=== PATIENT | female | born 1940 | race Caucasian/White ===

== ENCOUNTER 2022-07-02 21:40 | Emergency (ER) | payer MEDICARE, OTHER, SELFPAY ==
--- NOTE | ~2022-07-02 | XR_ITS ---
EXAMINATION: XR SHOULDER, RIGHT CLINICAL INFORMATION: COMPARISON: None TECHNIQUE: Two views of the right shoulder. FINDINGS: The bones and soft tissues are normal. No fracture. Glenohumeral and acromioclavicular alignment is anatomic with normal joint space. No abnormal soft tissue calcifications. XR/XR shoulder RT min 2V IMPRESSION: Normal right shoulder.
--- NOTE | ~2022-07-02 | XR_ITS ---
EXAMINATION: XR HAND, RIGHT CLINICAL INFORMATION: Fall COMPARISON: None TECHNIQUE: PA, lateral, and oblique views of the right hand. FINDINGS: The bones and soft tissues are normal. No fracture. Alignment is anatomic. Joint spaces are maintained. No erosions or soft tissue calcifications. XR/XR hand RT 2V IMPRESSION: Normal right hand.
[2022-07-02 22:51] VITALS: BP 172/84; PULSE 79; RESP 18; TEMP 36.7; O2SAT 95; BMI 30.5
--- OUTSIDE RECORDS SUMMARY | 2022-07-03 02:36 | XMS_ITS | Continuity of Care Document ---
:1940 Author Organization [facility] Address [address] [place] [id number]- Care Team Providers Name Role Phone Carol Kevin NP Primary Care Physician Encounter [facility] [place] Date(s): 06/17/19 - 06/17/[address] [address]- [facility] Encounter Diagnosis Headache (Final) - 06/17/19 headache (Final) - 06/17/19 Discharge Disposition: A-D/C Home Attending Physician: Antionette James MD Admitting Physician: Antionette James MD Referring Physician: Not on Staff, Referring MD Allergies, Adverse Reactions, Alerts Substance Reaction Severity Status sulfa drugs rash Active Macrobid vomiting Active Results Radiology Reports Exam Date Time Procedure Performing Provider Status 06/17/19 11:40 AM Chest 2 Views Frontal and Lat Nelson Fagan (Verified) Notes:(Chest 2 Views Frontal and Lat) Reason For Exam: HTN;Other:RESULT: Chest 2 Views Frontal and Lat Chest 2 Views Frontal and Lat Reason: Other:; HTN; Clinical Question(s): CHF; Hx of Present Illness: pt reports R frontal BETANCOURT x1wk,started checking BP at home 2-3 days ago and noted it to be high, hx of HTN. reports assoc. dizziness this AM when coming off the ambulance. otherwise denies any assoc. dizziness, visual changes, CP SOB. COMPARISON: None. FINDINGS: LINES AND TUBES: None. LUNGS AND PLEURA: Clear lungs. Normal pulmonary vascularity. No pleural effusion. No pneumothorax. HEART, MEDIASTINUM AND YOLANDA: Heart is normal in size. Normal mediastinal and hilar contour. BONES AND SOFT TISSUES: No acute abnormality. IMPRESSION: No acute abnormality. WSN: [id number] Dictated By: Phuong Wood MD Dictated Date/Time: 06/17/19 11:57 a Reviewed By: Phuong Wood MD Signed By: Phuong Wood MD Signed Date/Time: 06/17/19 11:57 am Transcribed By: JAYCE Transcribed Date/Time: 06/17/19 11:54 am Vital Signs Most recent to oldest 1 2 3 [Reference Range]: Oxygen Saturation [94-100 %] 97 % 98 % 96 % (06/17/19 5:25 PM) (06/17/19 2:47 PM) (06/17/19 11: 00 AM) Pulse Rate [55-90 bpm] 76 bpm 81 bpm 86 bpm (06/17/19 5:25 PM) (06/17/19 2:47 PM) (06/17/19 11: 00 AM) Blood Pressure [90-138/55-84 151/72 mm Hg 161/85 mm Hg 176 /105 mm Hg mm Hg] *H* *H* *H* (06/17/19 5:25 PM) (06/17/19 3:57 PM) (06/17/19 2:4 7 PM) Respiratory Rate [16-30 18 br/min 16 br/min 16 br/mi n br/min] (06/17/19 5:31 PM) (06/17/19 5:25 PM) (06/17/19 2:4 7 PM) Temperature [96.8-100.4 DegF] 98.2 DegF 98.5 DegF (06/17/19 1:57 PM) (06/17/19 11:00 AM) Mode of Delivery (Oxygen) Room air Room air room a ir (06/17/19 5:25 PM) (06/17/19 2:47 PM) (06/17/19 11: 00 AM) Blood pressure sites Arm, left Arm, left Arm, left (06/17/19 5:25 PM) (06/17/19 2:47 PM) (06/17/19 1:5 7 PM) Temperature Route Oral Oral (06/17/19 1:57 PM) (06/17/19 11:00 AM)
--- NOTE | 2022-07-03 04:33 | ED.GENADULT ---
HPI - General Adult General Chief complaint: Fall Stated complaint: Fell in parking lot, laceration on r index finger Time Seen by Provider: 07/03/22 03:06 Source: patient Mode of arrival: ambulatory Limitations: no limitations History of Present Illness HPI narrative: 82-year-old female presents after an accidental fall. She was in a parking lot when she had a mechanical fall. She did not hit her head or lose consciousness. She suffered injuries to the right upper extremity. She has arpt-[id number] pain in the right shoulder and right 2nd digit. The pain is worse with movement and palpation. The pain does not radiate. Not associated with numbness or tingling. The pain is sharp and aching in nature. Patient denies any prodrome such as lightheadedness, chest pain, palpitations prior to her fall. Fall was witnessed. There is no seizure-like activity. Related Data Allergies Allergy/AdvReac Type Severity Reaction Status Date / Time nitrofurantoin Allergy Nausea Verified 07/02/22 22:57 [From Macrobid] Sulfa (Sulfonamide Allergy Rash Verified 07/02/22 22:57 Antibiotics) sulfamethoxazole Allergy Rash Verified 07/02/22 22:57 [From Bactrim] trimethoprim [From Bactrim] Allergy Rash Verified 07/02/22 22:57 Review of Systems Review of Systems: CONSTITUTIONAL: Denies weight loss, fever and chills. HEENT: Denies changes in vision and hearing. RESPIRATORY: Denies SOB and cough. CV: Denies palpitations no CP. GI: Denies abdominal pain, nausea, vomiting and diarrhea. : Denies dysuria and urinary frequency. MSK: + myalgia and joint pain. SKIN: Denies rash and pruritus. NEUROLOGICAL: Denies headache and syncope. PSYCHIATRIC: Denies recent changes in mood. Denies anxiety and depression. All other ROS are negative unless in HPI [facility] Social History Social History Advance Directives: No Advance Directives Information Provided: Yes Physical Exam ED Vital Signs: Vital Signs - 24 hr 07/02/22 22:51 Temperature 98.0 F Pulse Rate 79 Respiratory Rate 18 Blood Pressure 172/84 H Pulse Oximetry 95 Oxygen Delivery Method Room Air BMI result Body Mass Index 30.5 GEN: Well developed, no acute distress, alert, oriented HEENT: Normocephalic, atraumatic, normal external ears, nose appears normal Eyes: Normal to appearance Neck: Supple, no lymphadenopathy Respiratory: Talks in complete sentences, no respiratory distress Extremities: No clubbing cyanosis or edema, full range of motion of bilateral upper extremities swelling to left 2nd digit Neurologic: No focal neurologic deficits, cranial nerves 2-12 intact, gait normal Skin: No rash, skin tear/laceration to the volar PIP. Able to flex and extend against resistance, no deformity, soft tissue swelling Course Course Course Narrative: 82-year-old female presents after an accidental fall. She did not hit her head or lose consciousness. She sustained injuries to the right upper extremity. Her tetanus vaccination is not up today. That will be provided to her today. She did receive x-rays which identified no traumatic injury. The laceration is quite superficial and is more like a skin tear. It is not amenable to repair. We will clean it and I have recommended a course of wound care which included cleaning gently with soap and water, antibiotic ointment and a clean sterile bandage. She was instructed to watch for signs of infection including redness, swelling, pain, purulent drainage. Should this occur, she should either come back to the emergency department or follow-up with her primary care doctor for possible antibiotic administration. X-rays of the right hand and right shoulder did not reveal any evidence of traumatic injury. She may take Tylenol and ibuprofen as needed for pain and discomfort. We also discussed ice and elevation. Patient normally takes her diabetic blood pressure medication at night. She did not take any. We will provide her with 500 mg of rapid release metformin as opposed to her usual extended release. Will also provide her a small amount of her blood pressure medication for which he has been given a strategy on how to remove resume her medications. Medical Decision Making Medical Decision Making MDM Narrative: 82-year-old female presents after an accidental fall. She did not hit her head or lose consciousness. She sustained injuries to the right upper extremity. Her tetanus vaccination is not up today. That will be provided to her today. She did receive x-rays which identified no traumatic injury. The laceration is quite superficial and is more like a skin tear. It is not amenable to repair. We will clean it and I have recommended a course of wound care which included cleaning gently with soap and water, antibiotic ointment and a clean sterile bandage. She was instructed to watch for signs of infection including redness, swelling, pain, purulent drainage. Should this occur, she should either come back to the emergency department or follow-up with her primary care doctor for possible antibiotic administration. X-rays of the right hand and right shoulder did not reveal any evidence of traumatic injury. She may take Tylenol and ibuprofen as needed for pain and discomfort. We also discussed ice and elevation. Patient normally takes her diabetic blood pressure medication at night. She did not take any. We will provide her with 500 mg of rapid release metformin as opposed to her usual extended release. Will also provide her a small amount of her blood pressure medication for which he has been given a strategy on how to remove resume her medications. Differential Diagnosis Differential Diagnoses: The differential diagnosis associated with the presentation includes (Fracture contusion, dislocation, abrasion, laceration) Accidental fall, finger laceration, musculoskeletal pain Independent Interpretation I performed an independent interpretation of an: Plain X-Ray (He right hand: No acute fracture, right shoulder: No acute fracture or dislocation) Radiology Impression Discussion of test interpretation with radiology: I have reviewed the radiologist's reading. (IMPRESSION: Normal right hand. Dictated By:Nelson Pauligned By:<Electronically signed by Nelson Paul MD in OV>07/03/22 010) Radiologist Impression: IMPRESSION: Normal right hand. Dictated By: Nelson Paul MD Signed By: <Electronically signed by Nelson Paul MD in OV> 07/03/22 010 Discharge Plan Discharge Clinical Impression: Laceration of finger of right hand, Accidental fall, Acute pain of right shoulder Patient Disposition: Home, Self-Care Instructions: Fall Prevention (ED), Shoulder Pain (ED), Laceration Without Closure (ED) Additional Instructions: Regarding your finger laceration, watch for signs of infection which include redness, swelling, pain, purulence drainage. While in the emergency department, you took metformin 500 mg. You may continue usual dose tonight. We also gave you amlodipine 5 mg orally. You should take an additional 5 mg tonight as well. He took lisinopril 10 mg here you may continue usual dose at night. Referrals: Carol Kevin NP [Primary Care Provider] -
[2022-07-03] MEDS: amLODIPine Besylate 5 MG TABLET PO (04:47)
[2022-07-03] MEDS: metFORMIN HCl 500 MG TABLET PO (04:47)
[2022-07-03] MEDS: Diphth,Pertus(ACell),Tet Adult 0.5 ML SYRINGE IM (04:51)
== END 2022-07-03 04:59 | disposition home or self-care (01) ==
PROVIDERS: Emergency Provider Emergency Medicine; PCP Nurse Practitioner Adult Health
DX: G89.11 Acute pain due to trauma (principal); M25.511 Pain in right shoulder; S61.210A Laceration without foreign body of right index finger without damage to nail, initial encounter; W01.0XXA Fall on same level from slipping, tripping and stumbling without subsequent striking against object, initial encounter; Y93.01 Activity, walking, marching and hiking; Y92.481 Parking lot as the place of occurrence of the external cause; Y99.9 Unspecified external cause status
CPT/HCPCS: 73030; 73120; 90471; 90715; 99282; 99284

== ENCOUNTER 2025-04-15 08:58 | Outpatient (REF) | payer MEDICARE, OTHER, SELFPAY ==
[2025-04-15 09:18] LABS: MANUAL DIFF FLAG NO
--- OUTSIDE RECORDS SUMMARY | 2025-04-15 09:43 | XMS_ITS | Encounter Summary ---
Author Organization [facility] Address [address] [place] [address] Phone Care Team Providers Care Log Roper Name Role Phone Carol Kevin NP Primary Care Provider [phone] Encounter Details Date Type Department Care Team (Late st Contact Info) Description 01/03/2025 Transcribe Orders Virtual Department [address] [place] [address] Carol Kevin NP [address] [place] [address] Asymptomatic menopausal state (Primary Dx) Social History Tobacco Use Types Packs/Day Years Used Date Smoking Tobacco: Former Cigarettes Q uit: 04/12/1977 Smokeless Tobacco: Never Alcohol Use Standard Drinks/Week Comments Never 0 (1 standard drink = 0.6 oz pur e alcohol) Education Answer Date Recorded Are you interested in more education? Not on lori e 09/17/2022 Are you concerned about learning? Not on file 09/17/2022 No 09/17/2022 No 09/17/2022 Digital Access Answer Date Recorded No 10/16/2022 No 10/16/2022 Reliable internet access at home? Not on file 10/16/2022 Device with a working camera? Not on file Intimate Partner Violence Answer Date R ecorded Are you denied basic needs s uch as food, clothing, or medical care? No 03/13/2023 In the past 12 months have y ou been in a relationship with a person who hurts, threatens, or tries to control you? No 03/13/2023 Are you denied basic needs s uch as food, clothing, or medical care? No 03/13/2023 In the past 12 months have y ou been in a relationship with a person who hurts, threatens, or tries to control you? No 03/13/2023 Comments Unknown Sex and Gender Information Value Date Recorded Sex Assigned at Female 05/04/2019 7:18 PM EST Legal Sex Female 10:11 PM EDT Gender Identity Female 05/04/2019 7:18 PM EST Sexual Orientation Straight 05/04/2019 7: 18 PM EST documented as of this encounter Plan of Treatment Upcoming Encounters Date Type Department Care Team (Late st Contact Info) Description 06/03/2025 7:15 AM EST Appointment [facility] - [address] [address] Carol Kevin NP [address] [place] [id number] Scheduled Orders Name Type Priority Associated Diagnoses Orde r Schedule DXA Screening Imaging Routine Asymptomatic menopausal state Expected: 02/02/2025, Expires: 01/03/2026 documented as of this encounter Visit Diagnoses Diagnosis Asymptomatic menopausal state- Primary documented in this encounter Care Teams Log Roper Relationship Specialty Start Date End Date Carol Kevin NP [address] [place] [id number] PCP - General 03/10/17 documented as of this encounter Additional Source Comments The information contained in this document represents components of the legal health record. It is not the complete legal health record.[facility]
--- OUTSIDE RECORDS SUMMARY | 2025-04-15 09:43 | XMS_ITS | Encounter Summary ---
Author Organization [facility] Address [address] [place] [address] Phone Care Team Providers Care Automotive Manufacturer Name Role Phone Carol Kevin NP Primary Care Provider [phone]- [phone] Encounter Details Date Type Department Care Team (Latest Contact Info) Description 03/30/2017 Transcribe Orders [address] [place] [address] Dorcas Shell DO [address] [place] [address] [email or web address] Iron deficiency anemia, unspecified iron deficiency anemia type Social History Tobacco Use Types Packs/Day Years Used Date Smoking Tobacco: Never Assessed Comments Unknown Sex and Gender Information Value Date Recorded Sex Assigned at Female 05/04/2019 7:18 PM EST Legal Sex Female 10:11 PM EDT Gender Identity Female 05/04/2019 7:18 PM EST Sexual Orientation Straight 05/04/2019 7: 18 PM EST documented as of this encounter Plan of Treatment Upcoming Encounters Date Type Department Care Team (Late st Contact Info) Description 06/03/2025 7:15 AM EST Appointment [facility], Bone Density - [facility] [address] [place] [address] Carol Kevin NP [address] [place] [address] documented as of this encounter Procedures Procedure Name Priority Date/Time Associated Diagnosis Comments MONOCLONAL PROTEIN STUDY, SERUM Routine 03/30/2017 11:38 AM EST Iron deficiency anemia, unspecified iron deficiency anemia type GLIADIN DEAMIDATED ANTIBODY, IGG/IGA Routine 03/30/2017 11:38 AM EST Iron deficiency anemia, unspecified iron deficiency anemia type DIRECT EDER Routine 03/30/2017 11:38 AM EST Iron deficiency anemia, unspecified iron deficiency anemia type RETICULOCYTES Routine 03/30/2017 11:38 AM EST Iron deficiency anemia, unspecified iron deficiency anemia type LDH Routine 03/30/2017 11:38 AM EST Iron deficiency anemia, unspecified iron deficiency anemia type COMPREHENSIVE METABOLIC PANEL (CMP) Routine 03/30/2017 11:38 AM EST Iron deficiency anemia, unspecified iron deficiency anemia type TSH WITH REFLEX Routine 03/30/2017 11:38 AM EST Iron deficiency anemia, unspecified iron deficiency anemia type IRON AND IRON BINDING CAPACITY Routine 03/30/2017 11:38 AM EST Iron deficiency anemia, unspecified iron deficiency anemia type ENDOMYSIAL IGA ANTIBODY Routine 03/30/20 17 11:38 AM EST Iron deficiency anemia, unspecified iron deficiency anemia type FREE LIGHT CHAINS, SERUM Routine 017 11:38 AM EST Iron deficiency anemia, unspecified iron deficiency anemia type TISSUE TRANSGLUTAMINASE IGA Routine 03/30/2017 11:38 AM EST Iron deficiency anemia, unspecified iron deficiency anemia type CBC AND DIFFERENTIAL Routine 03/30/2017 11:38 AM EST Iron deficiency anemia, unspecified iron deficiency anemia type FREE T4 Routine 03/30/2017 11:38 AM EST HAPTOGLOBIN Routine 03/30/2017 11:38 AM EST Iron deficiency anemia, unspecified iron deficiency anemia type FOLATE Routine 03/30/2017 11:38 AM EST Iron deficiency anemia, unspecified iron deficiency anemia type FERRITIN Routine 03/30/2017 11:38 AM EST Iron deficiency anemia, unspecified iron deficiency anemia type VITAMIN B12 Routine 03/30/2017 11:38 AM EST Iron deficiency anemia, unspecified iron deficiency anemia type BETA-2 MICROGLOBULIN, BLOOD Routine 03/30/2017 11:38 AM EST Iron deficiency anemia, unspecified iron deficiency anemia type documented in this encounter Results * Free T4 (03/30/2017 11:38 AM EST) FREE T4 1.2 0.9 - 1.7 ng/dL [facility] 03/30/2017 11:3 8 AM EST 03/30/2017 12:19 PM EST Dorcas Shell LAB BLOOD BKR ORDERABLES F inal Result [facility] [address] [place] [address] * Endomysial IgA antibody (03/30/2017 11:38 AM EST) ENDOMYSIAL AB IGA Negative Negative [facility] DPT OF LAB MED AND PAT+ Comment: (NOTE) A negative serum IgA endomysial antibody is usually seen in normal individuals, however a diagnosis of celiac disease, dermatitis herpetiformis and other gluten sensitive disorders cannot be completely excluded, as this test may be negative in a subset of individuals with these disorders. If the clinical suspicion for one of these disorders is high, recommend further testing for gluten sensitivity as indicated by the Celiac Disease Comprehensive [place] (Julien Test Unit Code CDCOM). In addition serum IgA endomysial antibody may also be negative in gluten-sensitive patients (with celiac disease, dermatitis herpetiformis or other gluten-sensitive disorders), who adhere to a strict gluten-free diet. ADDITIONAL INFORMATION This test has been modified from the supervisor dumping's instructions. Its performance characteristics were determined by [facility] in a manner consistent with CLIA requirements. This test has not been cleared or approved by the U.S. Food and Drug Administration. Blood 03/30/2017 11:3 8 AM EST 03/30/2017 12:18 PM EST Dorcas Avilawell LAB BLOOD ORDERABLES Final Result Performing Organization Address [facility] Co de Phone Number [facility] DPT OF LAB MED AND PAT+ [address] [place] [address] * Gliadin deamidated antibody, IgG/IgA (03/30/2017 11:38 AM EST) Gliadin Ab, IGA <10.0 <20.0 (Negative) U [facility] DPT OF LAB MED AND PAT+ GLIADIN AB IGG <10.0 <20.0 (Negative) U [facility] DPT OF LAB MED AND PAT+ Blood 03/30/2017 11:3 8 AM EST 03/30/2017 12:18 PM EST Dorcas Avilawell LAB BLOOD ORDERABLES Final Result Performing Organization Address [facility] Co de Phone Number [facility] DPT OF LAB MED AND PAT+ [address] [place] [address] * Tissue transglutaminase IgA (03/30/2017 11:38 AM EST) TTG IGA ANTIBODY <1.2 <4.0 (Negative) U/mL [facility] DPT OF LAB MED AND PAT+ Blood 03/30/2017 11:3 8 AM EST 03/30/2017 12:18 PM EST Dorcas [employer] LAB BLOOD BKR ORDERABLES F inal Result Performing Organization Address City/[facility] Co de Phone Number [facility] DPT OF LAB MED AND PAT+ [address] [place] [address] * Haptoglobin (03/30/2017 11:38 AM EST) HAPTOGLOBIN 130 30 - 200 mg/dL [facility] DPT OF LAB MED AND PAT+ Blood 03/30/2017 11:3 8 AM EST 03/30/2017 12:18 PM EST us [employer] LAB BLOOD BKR ORDERABLES F inal Result [facility] DPT OF LAB MED AND PAT+ [address] [place] [address] * Reticulocytes (03/30/2017 11:38 AM EST) RETIC (%) 1.4 0.6 - 1.9 % [facility] RETIC (ABSOLUTE) 0.0615 0.0164 - 0.0776 M/uL [facility] Retics, immature(%) 9.0 3.0 - 15.9 [facility] Blood 03/30/2017 11:3 8 AM EST 03/30/2017 12:19 PM EST [facility] BLOOD BKR ORDERABLES E dited Result - Final Performing Organization Address [facility] Co de Phone Number [address] [address] * (ABNORMAL) TSH with reflex (03/30/2017 11:38 AM EST) TSH 4.24(H) 0.27 - 4.20 uIU/mL [facility] Blood 03/30/2017 11:3 8 AM EST 03/30/2017 12:19 PM EST [employer] LAB BLOOD BKR ORDERABLES E dited Result - Final Performing Organization Address [facility] Co de Phone Number [address] [address] * LDH (03/30/2017 11:38 AM EST) LDH 161 118 - 273 U/L [facility] Blood 03/30/2017 11:3 8 AM EST 03/30/2017 12:19 PM EST [facility]LO[facility] BKR ORDERABLES F inal Result Performing Organization Address [facility]/ZIP Co de Phone Number [facility] [address] [place] [address] * (ABNORMAL) Free light chains, serum (03/30/2017 11:38 AM EST) [place] FLC (mg/dL) 25.40(H) 3.30 - 19.40 mg/L [facility] DPT OF LAB MED AND PAT+ Comment: (NOTE) ADDITIONAL INFORMATION Please note: The units for this test are in mg/L. To convert from mg/L to mg/dL divide by 10. Lambda Free Light Chains (mg/dL) 17.90 5.70 - 26.30 mg/L [facility] DPT OF LAB MED AND PAT+ Comment: (NOTE) ADDITIONAL INFORMATION Please note: The units for this test are in mg/L. To convert from mg/L to mg/dL divide by 10. Free [place]/Lambda Ratio 1.42 0.26 - 1.65 [facility] DPT OF LAB MED AND PAT+ Blood 03/30/2017 11:3 8 AM EST 03/30/2017 12:18 PM EST Dorcas Avilawell LAB BLOOD BKR ORDERABLES F inal Result [facility] DPT OF LAB MED AND PAT+ [address] [place] [address] * (ABNORMAL) Monoclonal protein study, serum (03/30/2017 11:38 AM EST) TOTAL PROTEIN 7.4 6.3 - 7.9 g/dL [facility] DPT OF LAB MED AND PAT+ ALBUMIN 3.9 3.4 - 4.7 g/dL [facility] DPT OF LAB MED AND PAT+ ALPHA-1 GLOBULIN 0.2 0.1 - 0.3 g/dL [facility] DPT OF LAB MED AND PAT+ ALPHA-2 GLOBULIN 1.3(H) 0.6 - 1.0 g/dL [facility] DPT OF LAB MED AND PAT+ BETA-GLOBULIN 1.1 0.7 - 1.2 g/dL [facility] DPT OF LAB MED AND PAT+ GAMMA-GLOBULIN 0.9 0.6 - 1.6 g/dL [facility] DPT OF LAB MED AND PAT+ A/G RATIO 1.08 [facility] D[facility] MED AND PAT+ M SPIKE Test component not applicable or not reported. not reported [facility] DPT OF LAB MED AND PAT+ M SPIKE Test component not applicable or not reported. not reported [facility] DPT OF LAB MED AND PAT+ IMPRESSION SEE NOTE [facility] DPT OF LAB MED AND PAT+ Comment: (NOTE) No apparent monoclonal protein on serum electrophoresis. See Immunofixation. IMMUNOFIXATION No monoclonal protein detected. [facility] DPT OF LAB MED AND PAT+ Blood 03/30/2017 11:3 8 AM EST 03/30/2017 12:18 PM EST us [employer] DO LAB BLOOD BKR ORDERABLES F inal Result [facility] DPT OF LAB MED AND PAT+ [address] [place] [address] * (ABNORMAL) Folate (03/30/2017 11:38 AM EST) [facility] FOLIC ACID >20.0(H) 4.2 - 19.9 ng/mL [facility] Blood 03/30/2017 11:3 8 AM EST 03/30/2017 12:19 PM EST Newser DO LAB BLOOD BKR ORDERABLES F inal Result [address] [address] * (ABNORMAL) Beta-2 microglobulin, blood (03/30/2017 11:38 AM EST) BETA 2 MICROGLOBULIN 3.40(H) 1.21 - 2.70 mcg/mL [facility] DPT OF LAB MED AND PAT+ Blood 03/30/2017 11:3 8 AM EST 03/30/2017 12:19 PM EST [employer] DO LAB BLOOD BKR ORDERABLES F inal Result [facility] DPT OF LAB MED AND PAT+ [address] [place] [address] * (ABNORMAL) Vitamin B12 (03/30/2017 11:38 AM EST) VITAMIN B12 1,135(H) 243 - 894 pg/mL [facility] Blood 03/30/2017 11:3 8 AM EST 03/30/2017 12:19 PM EST [employer] LAB BLOOD BKR ORDERABLES F inal Result [address] [address] * Ferritin (03/30/2017 11:38 AM EST) FERRITIN 20 13 - 150 ug/L [facility] Blood 03/30/2017 11:3 8 AM EST 03/30/2017 12:19 PM EST [employer] LAB BLOOD BKR ORDERABLES F inal Result [address] [address] * Iron and iron binding capacity (03/30/2017 11:38 AM EST) IRON 105 30 - 160 ug/dL [facility] IRON BINDING CAPACITY 354 228 - 428 ug/dL [facility] TRANSFERRIN SATURAT. 30 15 - 50 % [facility] Blood 03/30/2017 11:3 8 AM EST 03/30/2017 12:19 PM EST [employer] LAB BLOOD BKR ORDERABLES F inal Result Performing Organization Address City/State/[facility] Co de Phone Number [address] [address] * (ABNORMAL) Comprehensive metabolic panel (03/30/2017 11:38 AM EST) SODIUM 141 133 - 146 mmol/L [facility] POTASSIUM 4.5 3.3 - 5.1 mmol/L [facility] CHLORIDE 97 96 - 108 mmol/L [facility] CO2 30 21 - 35 mmol/L [facility] BUN 21(H) 6 - 19 mg/dL [facility] CREATININE 0.60 0.5 - 1.5 mg/dL [facility] GLUCOSE 88 70 - 99 mg/dL [facility] ALBUMIN 4.5 3.9 - 4.8 g/dL [facility] TOTAL PROTEIN 7.2 6.5 - 8.0 g/dL [facility] CALCIUM 10.0 8.4 - 10.3 mg/dL [facility] ALKALINE PHOSPHATASE 48 39 - 117 U/L [facility] TOTAL BILIRUBIN 0.3 0 - 1.2 mg/dL [facility] AST 22 0 - 37 U/L [facility] ALT 16 0 - 40 U/L [facility] GLOBULIN 2.7 1 - 4.8 g/dL [facility] EGFR >60 mL/min/1.7 3m2 [facility] Comment:Abnormal if <60. If patient is -[place], multiply the result by 1.21. ANION GAP 19 10 - 20 mmol/L [facility] Blood 03/30/2017 11:3 8 AM EST 03/30/2017 12:19 PM EST [employer] LAB BLOOD BKR ORDERABLES F inal Result [facility] [address] [place] [address] * (ABNORMAL) CBC and differential (03/30/2017 11:38 AM EST) WBC 4.70 3.40 - 11.20 K/uL [facility] RBC 4.52 3.80 - 4.80 M/uL [facility] HGB 12.8 12.0 - 15.0 g/dL [facility] HCT 39.9 36.0 - 46.0 % [facility] PLT 204 130 - 400 K/uL [facility] MCV 88.3 79.0 - 98.0 fL [facility] MCH 28.3 27.0 - 34.8 pg [facility] MCHC 32.1 31.5 - 36.0 g/dL [facility] RDW 18.4(H) 10.8 - 14.6 % [facility] MPV 11.4 9.4 - 12.4 fl [facility] NRBC 0.00 /100 WBCs [facility] ABSOLUTE NRBC 0.00 K/uL [facility] DIFF METHOD Auto [facility] NEUTS 64.4 45.30 - 77.70 % [facility] LYMPHS 21.5 12.30 - 39.70 % [facility] MONOS 9.8 4.10 - 12.80 % [facility] EOS 3.4 0 - 7.2 % [facility] BASOS 0.9 0 - 2.80 % [facility] Granulocytes, immature (%) 0.0 0.0 - 0.9 % [facility] ABSOLUTE NEUTS 3.03 1.40 - 7.70 K/uL [facility] ABSOLUTE LYMPHS 1.01 0.60 - 3.20 K/uL [facility] ABSOLUTE MONOS 0.46 0.11 - 0.59 K/uL [facility] ABSOLUTE EOS 0.16 0.01 - 0.50 K/uL [facility] ABSOLUTE BASOS 0.04 0.00 - 0.08 K/uL [facility] Granulocytes, immature 0.00 0.00 - 0.05 K/uL [facility] Blood 03/30/2017 11:3 8 AM EST 03/30/2017 12:19 PM EST [employer] LAB BLOOD BKR ORDERABLES F inal Result Performing Organization Address City/[facility]/ZIP Co de Phone Number [address] [address] * Direct Eder (03/30/2017 11:38 AM EST) Direct Eder Poly Negative [facility] Resulting Agency [facility] Blood 03/30/2017 11:3 8 AM EST 03/30/2017 12:20 PM EST Dorcas [employer] LAB BLOOD BANK TEST ORDERA BLES Final Result Performing Organization Address [facility] de Phone Number [address] [address] documented in this encounter Visit Diagnoses Diagnosis Iron deficiency anemia, unspecified iron deficiency anemia type documented in this encounter Additional Health Concerns Infection Onset Date Last Indicated Resolved Time CoV-Risk 02/28/2020 02/28/2020 03/13/2020 1:23 AM EDT documented as of this encounter Care Teams Automotive Manufacturer Relationship Specialty Start Date End Date Carol Kevin NP [address] [place] [address] PCP - General 03/10/17 documented as of this encounter Additional Source Comments The information contained in this document represents components of the legal health record. It is not the complete legal health record.[facility]
--- OUTSIDE RECORDS SUMMARY | 2025-04-15 09:43 | XMS_ITS | Encounter Summary ---
Author Organization [facility] Address [address] [place] [address] Phone Care Team Providers Care Civil Geotechnical Engineer Name Role Phone Carol Kevin NP Primary Care Provider [phone] Encounter Details Date Type Department Care Team (Late st Contact Info) Description 03/05/2025 Procedure Pass Event Monitor [address] [place] [address] Social History Tobacco Use Types Packs/Day Years [...] Info) Description 06/03/2025 7:15 AM EST Appointment [facility], Bone Density - [facility] [address] [place] [address] Carol Kevin NP [address] [place] [address] documented as of this encounter Visit Diagnoses Not on filedocumented in this encounter Care Teams Civil Geotechnical Engineer Relationship Specialty Start Date End Date Carol Kevin NP [address] [place] [address] PCP - General 03/10/17 documented as of this encounter Additional Source Comments The information contained in this document represents components of the legal health record. It is not the complete legal health record.[facility]
--- OUTSIDE RECORDS SUMMARY | 2025-04-15 09:43 | XMS_ITS | Encounter Summary ---
Author Organization [facility] Address [address] [place] [address] Phone Care Team Providers Care Electrical Continuity Tester Name Role Phone Carol Kevin NP Primary Care Provider Encounter Details Date Type Department Care Team (Late st Contact Info) Description 11/07/2017 Procedure Pass [facility], Ct Scan [address] [address] Social History Tobacco Use Types Packs/Day Years Used Date Smoking Tobacco: Former Cigarettes Q uit: 04/12/1977 Smokeless Tobacco: Never Comments Unknown Sex and Gender Information Value Date Recorded Sex Assigned at Female 05/04/2019 7:18 PM EST Legal Sex Female 10:11 PM EDT Gender Identity Female 05/04/2019 7:18 PM EST Sexual Orientation Straight 05/04/2019 7: 18 PM EST documented as of this encounter Plan of Treatment Upcoming Encounters Date Type Department Care Team (Late st Contact Info) Description 06/03/2025 7:15 AM EST Appointment [facility], Bone Density - [address] [address] Carol Kevin NP [address] [place] [address] documented as of this encounter Visit Diagnoses Not on filedocumented in this encounter Additional Health Concerns Infection Onset Date Last Indicated Resolved Time CoV-Risk 02/28/2020 02/28/2020 03/13/2020 1:23 AM EDT documented as of this encounter Care Teams Electrical Continuity Tester Relationship Specialty Start Date End Date Carol Kevin NP [address] [place] [id number] PCP - General 03/10/17 documented as of this encounter Additional Source Comments The information contained in this document represents components of the legal health record. It is not the complete legal health record.[facility]
--- OUTSIDE RECORDS SUMMARY | 2025-04-15 09:43 | XMS_ITS | Encounter Summary ---
Author Organization [facility] Address [address] [place] [address] Phone Care Team Providers Care Sewage Plant Operator Name Role Phone Carol Kevin NP Primary Care Provider [phone]- [phone] Encounter Details Date Type Department Care Team (Late st Contact Info) Description 07/15/2021 Procedure Pass [facility], Ct Scan - [address] [address] Social History Tobacco Use Types Packs/Day Years Used Date Smoking Tobacco: Former Cigarettes Q uit: 04/12/1977 Smokeless Tobacco: Never Alcohol Use Standard Drinks/Week Comments Never 0 (1 standard drink = 0.6 oz pur e alcohol) Comments Unknown Sex and Gender Information Value Date Recorded Sex Assigned at Female 05/04/2019 7:18 PM EST Legal Sex Female 10:11 PM EDT Gender Identity Female 05/04/2019 7:18 PM EST Sexual Orientation Straight 05/04/2019 7: 18 PM EST documented as of this encounter Functional Status * Calculated C-SSRS Risk Score (Lifetime/Recent) Answer Date of Assessment Author No Risk Indicated 07/15/2021 5:47 PM EST Any Martines RN * [place] Suicide Severity Rating Scale (Screener/Recent Self-Report) Question Answer Date of Assessment Author 1. Wish to be (Past 1 Month) No 022 5:47 PM EST Any Martines RN 2. Non-Specific Active Suici may Thoughts (Past 1 Month) No 07/15/2021 5:47 PM EST Grant Martines RN 6. Suicidal Behavior (Lifetime) No 5:47 PM EST Any Martines RN documented as of this encounter Plan of Treatment Upcoming Encounters Date Type Department Care Team (Late st Contact Info) Description 06/03/2025 7:15 AM EST Appointment [facility], Bone Density [address] [address] Carol Kevin NP [address] [place] [address] documented as of this encounter Visit Diagnoses Not on filedocumented in this encounter Care Teams Sewage Plant Operator Relationship Specialty Start Date End Date Carol Kevin NP [address] [place] [id number] PCP - General 03/10/17 documented as of this encounter Additional Source Comments The information contained in this document represents components of the legal health record. It is not the complete legal health record.[facility]
--- OUTSIDE RECORDS SUMMARY | 2025-04-15 09:43 | XMS_ITS | Clinical Summary ---
Author Organization [facility] Address [address] [place] [address] [place] [address] Phone Care Team Providers Care Polisher Apprentice Name Role Phone Carol Kevin Primary Care Provider [phone]- [phone] Allergies Active Allergy Reactions Criticality Noted Date Comments Indomethacin 01/13/2021 Nitrofurantoin Nausea And Vomiting Low 04/12/2017 Sulfa Antibiotics Rash Low 06/23/2011 Medications * This document contains information received from the source organization and may not represent a complete record from that organization. aspirin 81 MG chewable tablet Chew 81 mg 1 (one) time each day Active atenolol (TENORMIN) 25 MG tablet Take 25 mg by mouth 1 (one) time each day Active calcium carbonate 1500 (600 Ca) MG tablet Take 3,000 mg by mouth 1 (one) time each day Active glipiZIDE (GLUCOTROL XL) 2.5 MG 24 hr tablet Take 10 mg by mouth in the morning. Active ferrous sulfate 324 MG tablet delayed-releas e Take 324 mg by mouth 1 (one) time each day in the morning Active lisinopril 40 MG tablet Take 40 mg by mouth 1 (one) time each day 1 Active metFORMIN (GLUCOPHAGE) 500 MG tablet Take 1,000 mg by mouth 1 (one) time each day with dinner Active methenamine (HIPREX) 1 g tablet Take 1 g by mouth 1 (one) time each day Active simvastatin (ZOCOR) 40 MG tablet Take 40 mg by mouth 1 (one) time each day 1 Active Multiple Vitamin (MULTIVITAMIN ADULT PO) Take 1 tablet by mouth 1 (one) time each day Active Trulicity 3 MG/0.5ML solution pen-injector INJECT 1 PEN SUBCUTANEOUSLY EVERY WEEK DIRECTED 1 Active amLODIPine (NORVASC) 10 MG tablet Take 10 mg by mouth 1 (one) time each day Active citalopram (CeleXA) 10 MG tablet Take 10 mg by mouth 1 (one) time each day Active levothyroxine (SYNTHROID, LEVOTHROID) 112 MCG tablet Take 112 mcg by mouth 1 (one) time each day Active ascorbic acid (VITAMIN C) 500 MG tablet Take 500 mg by mouth 1 (one) time each day Active solifenacin (VESICARE) 5 MG tablet Take 5 mg by mouth 1 (one) time each day 1 Active Mounjaro 10 MG/0.5ML solution auto-injector INJECT 10MG EVERY WEEK UNDER THE SKIN FOR 30 DAYS FOR DIABETES 4 Active Active Problems Problem Noted Date Diagnosed Date Type 2 diabetes mellitus wit h diabetic chronic kidney disease 07/21/2021 Hypertensive chronic kidney disease, unspecified, with chronic kidney disease stage I through stage IV, or unspecified 01/13/2021 Proteinuria 01/13/2021 Chronic kidney disease, stage 2 (mild) Anemia 04/12/2017 Resolved Problems Problem Noted Date Diagnosed Date Resolved Date Osteoarthrosis, unspecified whether generalized or localized, involving unspecified site 01/13/2021 01/13/2021 History of anemia 07/19/2017 01/13/2021 History of recurrent urinary tract infection 7 01/13/2021 Monoclonal gammopathy of unc ertain significance 04/12/2017 01/13/2021 Family History Medical History Relation Comments Diabetes Brother Kidney disease Brother Diabetes Father Heart disease Father Heart disease Mother Relation Status Comments Brother Father Mother Social History Tobacco Use Types Packs/Day Years Used Date Smoking Tobacco: Former Smokeless Tobacco: Former Alcohol Use Standard Drinks/Week Comments Not Currently 0 (1 standard drink = 0.6 oz pur e alcohol) Comments Unknown Sex and Gender Information Value Date Recorded Sex Assigned at Not on file Legal Sex Female 5:02 PM EST Gender Identity Not on file Sexual Orientation Not on file Last Filed Vital Signs Vital Sign Reading Time Taken Comments Blood Pressure 118/72 04/09/2024 2:47 PM EST Pulse 87 04/09/2024 2:47 PM EST Temperature - - Respiratory Rate - - Oxygen Saturation 98% 04/09/2024 2:47 PM EST Inhaled Oxygen Concentration - - Weight 86.9 kg (191 lb 9.6 oz) 04/09/2024 2:47 P M EST Height - - Body Mass Index - - Plan of Treatment Upcoming Encounters Date Type Department Care Team (Late st Contact Info) Description 04/22/2025 3:30 PM EST [facility] Visit [facility] [address] [place] [address] James Rodas MD [address] [facility] [address] [place] [address] Health Maintenance Due Date Last Done Comments Pneumococcal Vaccine: 50+ Years (1 of 2 - PCV) 1959 Diabetes: Ophthalmology Exam 07/21/2021 Diabetes: Pedal Pulse Checked 07/21/2021 Diabetes: Sensory Foot Exam 07/21/2021 Diabetes: Visual Foot Exam 07/21/2021 Diabetes: Hemoglobin A1C 06/23/2023 023, 07/09/2021 Influenza Vaccine (#1) 2025 Hepatitis B Vaccine Aged Out No longe r eligible based on patient's age to complete this topic Procedures Procedure Name Priority Date/Time Associated Diagnosis Comments EXT RESULT ENTRY Routine 03/23/2023 from Last 3 Months or Most Recently Relevant to Health Maintenance Results * (ABNORMAL) EXT RESULT ENTRY (03/23/2023) Sodium 140 137 - 147 Potassium 4.8 3.4 - 5.5 Chloride 102.0 99.0 - 108.0 Anion Gap 9 <=30 MMOL/L BUN 22(A) 4 - 21 mg/dL Creatinine 0.90 0.50 - 1.10 mg/dL Albumin 3.9 3.5 - 5.0 g/dL Calcium 9.3 8.7 - 10.7 mg/dL Hemoglobin A1C 7.7(A) 4.0 - 6.0 03/23/2023 us Historical Provider LAB BLOOD ORDERABLES Radha l Result from Last 3 Months or Most Recently Relevant to Health Maintenance Insurance Medicare [facility] Medicare [facility] Care Teams Polisher Apprentice Relationship Specialty Start Date End Date Carol Kevin ANP [address] [place] [phone] PCP - General Nurse Practitioner 07/21/21
--- OUTSIDE RECORDS SUMMARY | 2025-04-15 09:43 | XMS_ITS | Clinical Summary ---
Author Organization [facility] Address [address] [facility] [address] [place] [address] Phone Care Team Providers Care Band Top Maker Name Role Phone Carol Kevin NP Primary Care Provider Allergies Active Allergy Reactions Criticality Noted Date Comments Nitrofurantoin Monohyd/M-Cryst Nausea and/or Vomiting Low 04/12/2017 Sulfa (Sulfonamide Antibiotics) Rash Low 06/23/2011 Medications aspirin 81 mg chewable tablet 1 tablet Acti ve atenolol (TENORMIN) tablet Take 25 mg by mouth daily. Active calcium carbonate (OS-RICARDO) 1,500 mg (600 mg elemental) tablet 1 tablet with food Active omega 1-GVK-MAB-fish oil (FISH OIL) 60-90-500 mg capsule Active hydroCHLOROthia zide (HYDRODIURIL) 25 MG tablet 1 tablet Active levothyroxine (SYNTHROID) 125 MCG tablet Active lisinopril (PRINIVIL,ZESTR IL) 5 MG tablet Acti ve metFORMIN (GLUCOPHAGE) 500 MG tablet 1,000 mg 2 (two) times a day with meals. Active multivitamin per tablet Active simvastatin (ZOCOR) 20 MG tablet 40 mg. Active citalopram (CELEXA) 10 MG tablet Take 10 mg by mouth daily. Active glipiZIDE (GLUCOTROL) 2.5 MG 24 hr tablet Take 2.5 mg by mouth daily. Active methenamine (HIPREX) 1 gram tablet Take 1 g by mouth. Active ferrous sulfate 324 mg (65 mg [place] iron) TbEC Take 324 mg by mouth daily with breakfast. Active doxylamine (UNISON) 25 mg tablet Take 25 mg by mouth nightly at bedtime as needed for sleep. Active amLODIPine (NORVASC) 10 MG tablet 2 Active FREESTYLE LITE Strp strips USE TO CHECK BLOOD SUGARS TWICE DAILY 3 Active FREESTYLE LITE METER meter kit USE DAILY DIRECTED TO CHECK BLOOD SUGAR. 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 History of recurrent UTIs 04/12/2017 Absolute anemia 04/12/2017 Encounters Date Type Department Care Team Description 03/27/2025 10:03 AM EST - 03/27/2025 11:59 PM EST Hospital Encounter Event Monitor [address] [place] [address] Carol Kevin NP Discharge Disposition: Home or Self Care 03/26/2025 8:38 AM EST - 03/26/2025 11:59 PM EST Hospital Encounter [address] [address] Gracie Randle NP Discharge Disposition: Home or Self Care 03/06/2025 Transcribe Orders [facility] [address] [place] [address] [place] Encounter for rehabilitation (Primary Dx) 03/05/2025 Procedure [place] [address] 03/05/2025 Transcribe Orders [facility] [address], [address] [place] [address] Margarita Chaudhari Tachycardia (Primary Dx) 02/11/2025 Procedure Pass [address] [address] 02/11/2025 Transcribe Orders Virtual Department [address] [place] [address] Gracie Randle, DISHROOM ATTENDANT Spinal stenosis of lumbar region with neurogenic claudication (Primary Dx) from Last 3 Months Family History Medical History Relation Comments Diabetes Father Heart attack Father Heart disease Father Heart attack Mother Hyperlipidemia Mother Hypertension Mother Relation Status Comments Father Mother Social History Tobacco Use Types [...] Orientation Straight 05/04/2019 7: 18 PM EST Last Filed Vital Signs Vital Sign Reading Time Taken Comments Blood Pressure 124/84 06/17/2023 12:47 PM EST Pulse 86 06/17/2023 12:47 PM EST Temperature 37 C (98.6 F) 03/13/2023 6:31 PM EDT Respiratory Rate 16 06/17/2023 12:47 PM EST Oxygen Saturation 95% 06/17/2023 12:47 PM EST Inhaled Oxygen Concentration - - Weight 83.9 kg (185 lb) 03/19/2025 1:23 PM EDT Height 167.6 cm (5' 6 ) 03/19/2025 1:23 PM EDT Body Mass Index 29.86 03/19/2025 1:23 PM EDT Plan of Treatment Upcoming Encounters Date Type Department Care Team (Late st Contact Info) Description 06/03/2025 7:15 AM EST Appointment [facility], Bone Density - [address] [address] Carol Kevin NP [address] [place] [address] Health Maintenance Due Date Last Done Comments DEPRESSION SCREENING 1952 OSTEOPOROSIS SCREENING INITIAL (ONE-TIME) 2007 RSV VACCINE (1 - 1-dose 75+ series) 2017 TSH LEVEL 03/30/2018 03/30/2017 CREATININE LEVEL 03/13/2024 03/13/2023, , 07/11/2017, Additional history exists POTASSIUM LEVEL 03/13/2024 03/13/2023, 04/22, 07/11/2017, Additional history exists INFLUENZA VACCINE (#1) 2024 , 03/11/2022, 04/07/2021, Additional history exists COVID-19 VACCINE ( season) 2025 05/04/2023, 05/04/2023, 04/21/2022, Additional history exists Adult Td,Tdap Booster 07/03/2032 07/03/2022 , 07/03/2022, 09/07/2017, Additional history exists PNEUMOCOCCAL VACCINES (50+ years) Completed 03/11/2015, 09/19/2008 ZOSTER VACCINES Completed 01/11/2020, 06/24, 04/28/2007 HEPATITIS A VACCINES Aged Out No long er eligible based on patient's age to complete this topic HIB VACCINES Aged Out No longer eligi ble based on patient's age to complete this topic MENINGOCOCCAL VACCINES (ACWY) Aged Out No longer eligible based on patient's age to complete this topic MENINGOCOCCAL VACCINES (B) Aged Out N o longer eligible based on patient's age to complete this topic Medical Devices Not on file Procedures Procedure Name Priority Date/Time Associated Diagnosis Comments MRI LUMBAR SPINE (NEURO) WITHOUT CONTRAST Routine 03/26/2025 10:16 AM EST Spinal stenosis of lumbar region with neurogenic claudication BASIC METABOLIC PANEL (BMP) STAT 03/13/2023 1:32 PM EDT TSH WITH REFLEX Routine 03/30/2017 11:38 AM EST Iron deficiency anemia, unspecified iron deficiency anemia type from Last 3 Months or Most Recently Relevant to Health Maintenance Results * MRI LUMBAR SPINE (NEURO) WITHOUT CONTRAST (03/26/2025 10:16 AM EST) Anatomical Region Laterality Modality L-spine Magnetic Resonan ce 03/27/2025 3:45 PM EST Impressions 03/27/2025 3:53 PM EST 1. Lumbar degenerative disc disease as above with a moderate levoconvex scoliosis apex at L3. No lumbar compression fracture or spondylolisthesis. Narrative 03/27/2025 3:53 PM EST MRI LUMBAR SPINE (NEURO) WITHOUT CONTRAST Referring clinician's provided indication for this examination in Epic: Outside Radiology Order; SPINAL STENOSIS, LUMBAR REGION WITH NEUROGENIC CLAUDICATION TECHNIQUE: MRI LUMBAR SPINE (NEURO) WITHOUT CONTRAST Multi-sequence, multi-planar MRI of the lumbar spine was performed without intravenous contrast. COMPARISON: CT abdomen and pelvis November 21, 2017 FINDINGS: LUMBAR SPINE: Alignment and Vertebrae: There is a moderate levoconvex lumbar scoliosis apex at L3 similar to the November 21, 2017 CT abdomen and pelvis. No lumbar compression fracture or spondylolisthesis. Marrow: No bone marrow replacing lesion. Discs and Endplates: There is moderate intervertebral disc height loss at L1 to, L3-4 and L4-5. There is degenerative endplate change with marrow edema at T12-L1, L1- 2, L3-4, and L4-5. Conus: The conus terminates at the L2 level. The conus appears normal in signal. Soft Tissues: Normal. No prevertebral edema. Other Findings: None. Findings by level: T12-L1: There is left subarticular and mild central spinal canal narrowing due to disc bulge and facet arthropathy. There is moderate left neural foraminal narrowing. Right neural foraminal narrowing. L1-L2: There is mild spinal canal narrowing due to disc bulge and facet arthropathy. There is mild right neural foraminal narrowing. L2-L3: There is mild spinal canal narrowing due to disc bulge and facet arthropathy. There is moderate right neural foraminal narrowing. No left neural foraminal narrowing. L3-L4: There is right subarticular and mild central spinal canal narrowing due to disc bulge and facet arthropathy. There is moderate right neural foraminal narrowing. No left neural foraminal narrowing. L4-L5: There is bilateral subarticular and mild central spinal canal negative disc bulge and facet arthropathy. There is moderate right and severe left neural foraminal narrowing. L5-S1: There is facet arthropathy without spinal canal or neural foraminal narrowing. Procedure Note Nadir Raphael DO - 03/27/2025 MRI LUMBAR SPINE (NEURO) WITHOUT CONTRAST Referring clinician's provided indication for this examination in Epic:Outside Radiology Order; SPINAL STENOSIS, LUMBAR REGION WITH NEUROGENICCLAUDICATION TECHNIQUE: MRI LUMBAR SPINE (NEURO) WITHOUT CONTRAST Multi-sequence, multi-planar MRI of the lumbar spine was performed withoutintravenous contrast. COMPARISON: CT abdomen and pelvis November 21, 2017 FINDINGS: LUMBAR SPINE: Alignment and Vertebrae: There is a moderate levoconvex lumbar scoliosisapex at L3 similar to the November 21, 2017 CT abdomen and pelvis. No lumbarcompression fracture or spondylolisthesis. Marrow: No bone marrow replacing lesion. Discs and Endplates: There is moderate intervertebral disc height loss atL1 to, L3-4 and L4-5. There is degenerative endplate change with marrowedema at T12-L1, L1- 2, L3-4, and L4-5. Conus: The conus terminates at the L2 level. The conus appears normal insignal. Soft Tissues: Normal. No prevertebral edema. Other Findings: None. Findings by level: T12-L1: There is left subarticular and mild central spinal canal narrowingdue to disc bulge and facet arthropathy. There is moderate left neuralforaminal narrowing. Right neural foraminal narrowing. L1-L2: There is mild spinal canal narrowing due to disc bulge and facetarthropathy. There is mild right neural foraminal narrowing. L2-L3: There is mild spinal canal narrowing due to disc bulge and facetarthropathy. There is moderate right neural foraminal narrowing. No leftneural foraminal narrowing. L3-L4: There is right subarticular and mild central spinal canal narrowingdue to disc bulge and facet arthropathy. There is moderate right neuralforaminal narrowing. No left neural foraminal narrowing. L4-L5: There is bilateral subarticular and mild central spinal canalnegative disc bulge and facet arthropathy. There is moderate right andsevere left neural foraminal narrowing. L5-S1: There is facet arthropathy without spinal canal or neural foraminalnarrowing. IMPRESSION: 1. Lumbar degenerative disc disease as above with a moderate levoconvexscoliosis apex at L3. No lumbar compression fracture orspondylolisthesis. us Gracie Randle DISHROOM ATTENDANT IMG MR XSPECIALTY Final Result * (ABNORMAL) Basic metabolic panel (03/13/2023 1:32 PM EDT) SODIUM 138 133 - 146 mmol/L [facility] CHLORIDE 99 96 - 108 mmol/L [facility] POTASSIUM 4.4 3.3 - 5.1 mmol/L [facility] CO2 29 21 - 35 mmol/L [facility] BUN 15 6 - 19 mg/dL [facility] CREATININE 0.70 0.5 - 1.5 mg/dL [facility] GLUCOSE 163(H) 70 - 99 mg/dL [facility] CALCIUM 9.5 8.4 - 10.3 mg/dL [facility] EGFR 87 >59 mL/min/1.7 3m2 [facility] Comment:Estimated glomerular filtration rate calculated using the CKD-EPI refit equation. ANION GAP 14 10 - 20 mmol/L [facility] Blood 03/13/2023 1:32 PM EDT 03/13/2023 1:35 PM EDT us Jose Guadalupe Henley MD LAB BLOOD BKR ORDERABLES Radha l Result [address] [address] * (ABNORMAL) TSH with reflex (03/30/2017 11:38 AM EST) TSH 4.24(H) 0.27 - 4.20 uIU/mL [facility] Blood 03/30/2017 11:3 8 AM EST 03/30/2017 12:19 PM EST Dorcas Shell DO LAB BLOOD BKR ORDERABLES E dited Result - Final Performing Organization Address City/[facility]/ZIP Co de Phone Number [address] [address] from Last 3 Months or Most Recently Relevant to Health Maintenance Insurance MEDICARE PART A & B [facility] MEDICARE SUPPLEMENT MEDICARE PART A & B [employer] MEDICARE SUPPLEMENT MEDICARE PART A & B [employer] MEDICARE SUPPLEMENT MEDICARE PART A & [place] [address] [place] [address] MEDICARE SUPPLEMENT MEDICARE PART A & B [facility] MEDICARE SUPPLEMENT MEDICARE PART A & B [facility] MEDICARE SUPPLEMENT MEDICARE PART A & B [facility] MEDICARE SUPPLEMENT MEDICARE PART A & B [facility] MEDICARE SUPPLEMENT MEDICARE PART A & B [facility] MEDICARE SUPPLEMENT [employer] Care Teams Band Top Maker Relationship Specialty Start Date End Date Carol Kevin NP [address] [place] [address] PCP - General 03/10/17 Additional Source Comments The information contained in this document represents components of the legal health record. It is not the complete legal health record.[facility]
--- OUTSIDE RECORDS SUMMARY | 2025-04-15 09:43 | XMS_ITS | Encounter Summary ---
Author Organization [facility] Address [address] [place] [address] Phone Care Team Providers Care Fire Watchman Name Role Phone Carol Kevin NP Primary Care Provider [phone]- [phone] Encounter Details Date Type Department Care Team (Late st Contact Info) Description 02/11/2025 Procedure Pass [facility], [address] [address] Social History Tobacco Use Types Packs/Day Years [...] Info) Description 06/03/2025 7:15 AM EST Appointment [facility], Bone Density [address] [address] Carol Kevin NP [address] [place] [address] documented as of this encounter Visit Diagnoses Not on filedocumented in this encounter Care Teams Fire Watchman Relationship Specialty Start Date End Date Carol Kevin NP [address] [place] [address] PCP - General 03/10/17 documented as of this encounter Additional Source Comments The information contained in this document represents components of the legal health record. It is not the complete legal health record.[facility]
--- OUTSIDE RECORDS SUMMARY | 2025-04-15 09:43 | XMS_ITS | Encounter Summary ---
Author Organization [facility] Address [address] [facility] [address] [place] [address] Phone Care Team Providers Care Pulp Mill Supervisor Name Role Phone Carol Kevin MANAGER SECONDARY Primary Care Provider [phone]- [phone] Encounter Details Date Type Department Care Team (Latest Contact Info) Description 06/09/2022 Transcribe Orders Virtual Department [address] [place] [address] Nelson Murillo MD [address] [place] [phone] [email or web address] Dysphagia, unspecified type (Primary Dx) Social History Tobacco Use Types [...] Info) Description 06/03/2025 7:15 AM EST Appointment [facility], Bone Density - [facility] [address] [place] [address] Carol Kevin NP [address] [place] [address] documented as of this encounter Results * FL BARIUM SWALLOW ESOPHAGRAM DOUBLE CONTRAST (07/07/2022 10:27 AM EST) Anatomical Region Laterality Modality Chest Computed Radiogr aphy 07/07/2022 11:1 0 AM EST Impressions 07/07/2022 11:16 AM EST Flash epiglottic undercoating without donald penetration. Moderately large hiatal hernia with foreshortening of the esophagus and multiple distal tertiary contractions, more suggestive of presbyesophagus than spasm. No gross mucosal pathology. FLUOROSCOPY TIME: min. 52 sec; 131 IMAGES/FRAMES POS - [id number] Narrative 07/07/2022 11:16 AM EST COMPARISON: 11/21/2017 CT FINDINGS: A preliminary lateral view the neck reveals degenerative disc changes and lower cervical spine with large ventral osteophytes present at the C5-6 level and smaller osteophytes at C4-5 and C6-7. A standard double contrast study was performed. Following ingestion of the contrast mixture deglutition was assessed fluoroscopically. There was flash epiglottic undercoating without evidence of aspiration or significant penetration. No nasopharyngeal reflux or cricopharyngeal achalasia identified. Upper esophagus displayed normal distensibility with mild distention present, and smooth borders. Multiple prominent tertiary contractions were and discoordinated stripping waves were present in the distal esophagus, which is foreshortened due to the presence of a hiatal hernia containing the majority of the gastric fundus. No gross mucosal ulceration or stricture identified. Visualized gastric contours unremarkable. Procedure Note Nelson Joy MD - 07/07/2022 COMPARISON: 11/21/2017 CT FINDINGS: A preliminary lateral view the neck reveals degenerative disc changes andlower cervical spine with large ventral osteophytes present at the C5-6level and smaller osteophytes at C4-5 and C6-7. A standard double contraststudy was performed. Following ingestion of the contrast mixture deglutition was assessedfluoroscopically. There was flash epiglottic undercoating without evidenceof aspiration or significant penetration. No nasopharyngeal reflux orcricopharyngeal achalasia identified. Upper esophagus displayed normal distensibility with mild distentionpresent, and smooth borders. Multiple prominent tertiary contractions wereand discoordinated stripping waves were present in the distal esophagus,which is foreshortened due to the presence of a hiatal hernia containingthe majority of the gastric fundus. No gross mucosal ulceration orstricture identified. Visualized gastric contours unremarkable. IMPRESSION: Flash epiglottic undercoating without donald penetration. Moderately largehiatal hernia with foreshortening of the esophagus and multiple distaltertiary contractions, more suggestive of presbyesophagus than spasm. Nogross mucosal pathology. FLUOROSCOPY TIME: min. 52 sec; 131 IMAGES/FRAMES POS - [id number] Nelson Murillo MD [facility] Final Result documented in this encounter Visit Diagnoses Diagnosis Dysphagia, unspecified type- Primary Dysphagia, unspecified type documented in this encounter Care Teams Pulp Mill Supervisor Relationship Specialty Start Date End Date Carol Kevin NP [address] [place] [id number] PCP - General 03/10/17 documented as of this encounter Additional Source Comments The information contained in this document represents components of the legal health record. It is not the complete legal health record.[facility]
--- OUTSIDE RECORDS SUMMARY | 2025-04-15 09:44 | XMS_ITS | Encounter Summary ---
Author Organization [facility] Address [address] [place] [address] Phone Care Team Providers Care Caustic Operator Name Role Phone Carol Kevin NP Primary Care Provider [phone] Encounter Details Date Type Department Care Team (Late st Contact Info) Description 07/15/2021 Procedure Pass [facility], Ct Scan - [address] [id number] Social History Tobacco Use Types Packs/Day Years [...] 5:47 PM EST Any Martines RN * [place] Suicide Severity Rating Scale (Screener/Recent Self-Report) Question [...] Info) Description 06/03/2025 7:15 AM EST Appointment [facility], Bone Density [address] [address] Carol Kevin NP [address] [place] [phone] documented as of this encounter Visit Diagnoses Not on filedocumented in this encounter Care Teams Caustic Operator Relationship Specialty Start Date End Date Carol Kevin NP [address] [place] [phone] PCP - General 03/10/17 documented as of this encounter Additional Source Comments The information contained in this document represents components of the legal health record. It is not the complete legal health record.[facility]
--- OUTSIDE RECORDS SUMMARY | 2025-04-15 09:44 | XMS_ITS | Encounter Summary ---
Author Organization [facility] Address [address] [facility] [address] [place] [address] Phone Care Team Providers Care Paper Conservator Name Role Phone Carol Kevin NP Primary Care Provider [phone] Reason for Referral * MRI/CAT Scan - Closed Specialty Diagnoses / Procedures Referred By Toya pool Referred To Contact Radiology Diagnoses Other microscopic hematuria Procedures CT Abdomen/Pelvis Isabelle Anderson PA-C Phone: tel: fax: mailto:[email or web address] Referral ID Status Reason Start Date Expiration Date Visits Re quested Visits Authorized [id number] Closed 11/07/2017 11/07/2018 1 1 Encounter Details Date Type Department Care Team (Late st Contact Info) Description 11/07/2017 Ancillary Orders Virtual Department [address] [place] [phone] Isabelle Anderson PA-C [address] [place] [address], [address] [address] [email or web address] Other microscopic hematuria Social History Tobacco Use Types Packs/Day Years [...] Info) Description 06/03/2025 7:15 AM EST Appointment [facility], Bone Density - [facility] [address] [place] [address] Carol Kevin NP [address] [place] [address] documented as of this encounter Results * CT ABDOMEN/PELVIS WITH AND WITHOUT CONTRAST (11/21/2017 9:52 AM EDT) Anatomical Region Laterality Modality Abdomen, Pelvis Computed Tomogra phy 11/21/2017 11:5 1 AM EDT Impressions 11/21/2017 1:15 PM EDT No urinary tract stones or obstructive uropathy. Probable bilateral renal cysts. Diffuse irregular bladder wall thickening with tiny diverticula and mild perivesicular fat stranding which could be related to clinical history of chronic cystitis. More focal area of nodular thickening along the right bladder wall. Recommend correlation with cystoscopy. Extensive colonic diverticulosis. Moderate-sized hiatal hernia. TOTAL CTDIvol: 29.3 mGy POS - [id number] Edited by: Priscila Guadarrama on 11/21/2017 12:32 PM Narrative 11/21/2017 1:15 PM EDT COMPARISON: None. TECHNIQUE: Water is used as an oral contrast agent. Pre-contrast views are obtained from the kidneys through the inferior pubic rami. Intravenous contrast is then administered and scanning obtained at ninety seconds from the dome of the liver to the iliac crests. Delayed scanning is then obtained from above the kidneys through the inferior pubic rami during excretory phase. FINDINGS: CT ABDOMEN: Lower thorax: Elevation of the right hemidiaphragm. Few 1-2 mm faint nodules in the basal lungs are probably post-inflammatory. Mild atelectasis and/or scarring. No pleural or pericardial effusions. Cardiomegaly. Liver: Subcentimeter calcification along the hepatic margin near the hepatic vein confluence could represent an hepatic calcification or a separate calcified structure such as a calcified lymph node. Gallbladder/biliary tree: No calcified gallstones or pericholecystic inflammatory change. No biliary ductal dilatation. Spleen: No abnormality detected. Pancreas: Atrophic with scattered fatty changes. Adrenal glands: Mild thickening bilaterally. Kidneys/ureters: Uniform enhancement and symmetric excretion of contrast material. No hydroureteronephrosis. Single ureters. No filling defects within the opacified collecting systems, portions of the right ureter are not opacified. No renal or ureteral stones. Two cysts in the right upper kidney, the posterior cyst is larger measuring 1.0 cm and has a thin septation. Too small to characterize hypodense lesions in the right upper kidney statistically represents cysts. Vasculature: Extensive atherosclerotic calcifications of the aorta and iliac vessels. No aortic aneurysm. Hepatic veins and portal vein are patent. Peritoneum: No evidence of free intraperitoneal air, free fluid, or organized collections. Lymph nodes: Multiple subcentimeter retroperitoneal and mesenteric lymph nodes which are not enlarged by size criteria. Stomach/duodenum: Moderate-sized hiatal hernia. Body wall: No suspicious mass. CT PELVIS: Bladder: Partially distended. No stones. Diffuse irregular wall thickening with tiny diverticula. There appears to be an area of nodular thickening at the right posterolateral aspect of the bladder which is more prominent than the remainder of the bladder thickening. Minimal fat stranding in the perivesicular fat. Reproductive: No uterine abnormality. Ovaries are difficult to distinguish from adjacent unopacified bowel. Bowel: Diffuse extensive colonic diverticulosis. No evidence of diverticulitis. Normal appendix. No bowel obstruction. Peritoneum: No free fluid or organized collections. Lymph nodes: No iliac chain or inguinal lymphadenopathy. Bones: No compression deformities. Moderate levoscoliosis of the lumbar spine with severe degenerative changes along the inner aspect of the curvature. Diffuse severe facet arthropathy in the lumbar spine below L2. Prominent degenerative changes across the symphysis pubis. No destructive bone lesion. Procedure Note Mahamed Diaz MD - 11/21/2017 COMPARISON: None. TECHNIQUE: Water is used as an oral contrast agent. Pre-contrast viewsare obtained from the kidneys through the inferior pubic rami.Intravenous contrast is then administered and scanning obtained at ninetyseconds from the dome of the liver to the iliac crests. Delayed scanningis then obtained from above the kidneys through the inferior pubic ramiduring excretory phase. FINDINGS: CT ABDOMEN: Lower thorax: Elevation of the right hemidiaphragm. Few 1-2 mm faintnodules in the basal lungs are probably post-inflammatory. Mildatelectasis and/or scarring. No pleural or pericardial effusions.Cardiomegaly. Liver: Subcentimeter calcification along the hepatic margin near thehepatic vein confluence could represent an hepatic calcification or aseparate calcified structure such as a calcified lymph node. Gallbladder/biliary tree: No calcified gallstones or pericholecysticinflammatory change. No biliary ductal dilatation. Spleen: No abnormality detected. Pancreas: Atrophic with scattered fatty changes. Adrenal glands: Mild thickening bilaterally. Kidneys/ureters: Uniform enhancement and symmetric excretion of contrastmaterial. No hydroureteronephrosis. Single ureters. No filling defectswithin the opacified collecting systems, portions of the right ureter arenot opacified. No renal or ureteral stones. Two cysts in the right upperkidney, the posterior cyst is larger measuring 1.0 cm and has a thinseptation. Too small to characterize hypodense lesions in the right upperkidney statistically represents cysts. Vasculature: Extensive atherosclerotic calcifications of the aorta andiliac vessels. No aortic aneurysm. Hepatic veins and portal vein arepatent. Peritoneum: No evidence of free intraperitoneal air, free fluid, ororganized collections. Lymph nodes: Multiple subcentimeter retroperitoneal and mesenteric lymphnodes which are not enlarged by size criteria. Stomach/duodenum: Moderate-sized hiatal hernia. Body wall: No suspicious mass. CT PELVIS: Bladder: Partially distended. No stones. Diffuse irregular wallthickening with tiny diverticula. There appears to be an area of nodularthickening at the right posterolateral aspect of the bladder which is moreprominent than the remainder of the bladder thickening. Minimal fatstranding in the perivesicular fat. Reproductive: No uterine abnormality. Ovaries are difficult todistinguish from adjacent unopacified bowel. Bowel: Diffuse extensive colonic diverticulosis. No evidence ofdiverticulitis. Normal appendix. No bowel obstruction. Peritoneum: No free fluid or organized collections. Lymph nodes: No iliac chain or inguinal lymphadenopathy. Bones: No compression deformities. Moderate levoscoliosis of the lumbarspine with severe degenerative changes along the inner aspect of thecurvature. Diffuse severe facet arthropathy in the lumbar spine below L2.Prominent degenerative changes across the symphysis pubis. Nodestructive bone lesion. IMPRESSION: No urinary tract stones or obstructive uropathy. Probable bilateral renalcysts. Diffuse irregular bladder wall thickening with tiny diverticula and mildperivesicular fat stranding which could be related to clinical history ofchronic cystitis. More focal area of nodular thickening along the rightbladder wall. Recommend correlation with cystoscopy. Extensive colonic diverticulosis. Moderate-sized hiatal hernia. TOTAL CTDIvol: 29.3 mGy POS - [id number] Edited by: Priscila Guadarrama on 11/21/2017 12:32 PM us Isabelle Anderson PA-C IMG CT ABD/PELVIS Final Result documented in this encounter Visit Diagnoses Diagnosis Other microscopic hematuria Other microscopic hematuria documented in this encounter Additional Health Concerns Infection Onset Date Last Indicated Resolved Time CoV-Risk 02/28/2020 02/28/2020 03/13/2020 1:23 AM EDT documented as of this encounter Care Teams Paper Conservator Relationship Specialty Start Date End Date Carol Kevin NP [address] [place] [phone] PCP - General 03/10/17 documented as of this encounter Additional Source Comments The information contained in this document represents components of the legal health record. It is not the complete legal health record.[facility]
[2025-04-15 09:47] LABS: Hematocrit 41.6 % (37.0-47.0); Hemoglobin 12.7 g/dl (12.0-16.0); Imm Gran Abs Auto 0.04 X10*3/uL (0.00-0.03); Imm Gran Pct Auto 0.6 % (0.0-0.4); Lymphocytes Absolute Auto 1.1 X10*3/uL (1.2-4.9); Mean Corpuscular HGB Conc 30.5 g/dl (31.0-35.0); Mean Corpuscular Hemoglobin 26.8 pg (27.0-33.0); Mean Corpuscular Volume 87.9 fL (80.0-98.0); NRBC Abs Auto 0.000 X10*3/uL (0.0-0.012); NRBC Pct Auto 0.0 /100WBC (0.0-0.2); Platelet Count 200 X10*3/uL (160-400); Red Blood Count 4.73 X10*6/uL (4.20-5.50); White Blood Count 6.5 X10*3/uL (4.8-10.8)
[2025-04-15 10:10] LABS: Appearance Urine Clear; Glucose Urine UA Negative (Negative); PH 5.5 (5.0-9.0); Specific Gravity - Urine 1.015 (1.005-1.025); UMIC TRIGGER UA YES
[2025-04-15 10:14] LABS: Parathyroid Hormone Intact 79.2 pg/mL (8.7-77.1)
[2025-04-15 10:38] LABS: Albumin Level 4.6 g/dL (3.5-5.0); Anion Gap 11 (12-20); Blood Urea Nitrogen 9 mg/dL (9-16); Calcium 9.4 mg/dL (8.4-10.2); Carbon Dioxide 28 mmol/L (22-29); Chloride 106 mmol/L (96-108); Magnesium 1.6 mg/dL (1.6-2.6); Potassium 4.1 mmol/L (3.3-5.1); Sodium 141 mmol/L (135-145)
[2025-04-15 11:14] LABS: Protein/Creatinine Ratio, Ur 0.80 (<0.2); Total Protein Urine Random 79 mg/dL (<12)
[2025-04-15 11:40] LABS: Microalbum/Creatinine Ratio Ur 506.1 ug/mg cr (<30)
== END 2025-04-15 08:59 | disposition home or self-care (01) ==
LOC: HO.LAB 08:58
PROVIDERS: PCP Nurse Practitioner Adult Health; Visit Provider Internal Medicine Nephrology
DX: E11.22 Type 2 diabetes mellitus with diabetic chronic kidney disease (principal); N18.2 Chronic kidney disease, stage 2 (mild); R80.1 Persistent proteinuria, unspecified; Z13.21 Encounter for screening for nutritional disorder
CPT/HCPCS: 36415; 80069; 81001; 82043; 82306; 82570; 83735; 83970; 84156; 85025